=== PATIENT | female | born 1990 | race Caucasian/White ===

== ENCOUNTER 2020-01-05 10:18 | Emergency (ER) | payer OTHER ==
[~2020-01-05] VITALS: Ht 157.5 cm; Wt 65.3 kg
[2020-01-05 10:21] VITALS: BP 137/94
--- NOTE | 2020-01-05 10:35 | NUR ---
C/O NASAL CONGESTION, SOB, CHEST PAIN X 5 DAYS. DENIES FEVER.PT AWAKE , ALERT, AFIBRILE , AMBULATORY WITH STEADY GAIT ,SCE , CBS BLF , FLAT SOFT NABS NONTENDER. MED HX: DENIES
--- NOTE | 2020-01-05 10:35 | NUR ---
PT AMB TO BED 8
--- NOTE | 2020-01-05 10:38 | NUR ---
DR SORIA AT BEDSIDE EVALUATING PT.
--- NOTE | 2020-01-05 11:15 | NUR ---
PT WENT XRAY VIA WHEELCHAIR.
--- NOTE | 2020-01-05 11:21 | NUR ---
PT BACK FROM [facility] VIA WHEELCHAIR.
--- NOTE | 2020-01-05 12:00 | NUR ---
DR SORIA AT BEDSIDE REEVALUATING PT.
[2020-01-05 12:14] VITALS: BP 137/80
--- NOTE | 2020-01-05 12:15 | NUR ---
Patient discharged with v/s stable. Written and verbal after care instructions given and explained. Patient verbalized understanding. Ambulatory with steady gait. All questions addressed prior to discharge. Advised to follow up with PMD.
== END 2020-01-05 12:10 | disposition home or self-care (01) ==
LOC: MED 10:18
DX: M94.0 Chondrocostal junction syndrome [Tietze] (principal); J06.9 Acute upper respiratory infection, unspecified
CPT/HCPCS: 71046; 99283; Q0092